=== PATIENT | female | born 1995 | race Caucasian/White ===

== ENCOUNTER 2021-08-28 08:42 | Emergency (ER) | payer OTHER, SELFPAY ==
[2021-08-28 08:56] VITALS: BP 129/78; PULSE 82; RESP 16; TEMP 37.2; O2SAT 100
--- NOTE | 2021-08-28 09:34 | ED.DENTAL ---
HPI - Dental/Oral General Chief complaint: Dental/Oral Stated complaint: Toothache Time Seen by Provider: 08/28/21 09:23 Source: patient and RN notes reviewed Mode of arrival: ambulatory Limitations: no limitations History of Present Illness HPI Narrative: Patient presents today complaining of left upper dental pain. States she broke her wisdom tooth 2 days ago while she was eating and has had pain ever since. She does not have a dentist. She currently rates her pain 4/10 and has been taking ibuprofen with mild relief. Smokes half pack per day. MD Complaint: tooth pain and tooth injury Related Data Home Medications Medication Instructions Recorded Confirmed etonogestrel [Nexplanon] 1 implant SUBDERMAL ONCE 10/09/19 08/28/21 Allergies Allergy/AdvReac Type Severity Reaction Status Date / Time amoxicillin Allergy Intermediate Rash Verified 08/28/21 09:08 Penicillins Allergy Intermediate Rash Verified 08/28/21 09:08 Review of Systems Review of Systems: CONSTITUTIONAL: Denies body aches, fever, chills, or sweats. EYES: Denies visual changes, redness, or discharge. ENT: Denies rhinorrhea, congestion, sore throat, or otalgia.+ Tooth pain and injury CARDIOVASCULAR: Denies chest pain, palpitations, or edema. RESPIRATORY: Denies cough or dyspnea. GASTROINTESTINAL: Denies abdominal pain, nausea, vomiting, or diarrhea. GENITOURINARY: Denies dysuria or hematuria. SKIN: Denies rash, itching, or wounds. MUSCULOSKELETAL: Denies back pain, joint pain, or myalgia. NEUROLOGIC: Denies headache, numbness, tingling, or weakness. PSYCH: Denies depression or anxiety. [facility] Social History Social History (Updated 08/28/21 @ 09:35 by Paula Klein, [facility], ) Smoking packs per day: 0.5 Smoking cigarettes per day: 10.0 Smoking status: Current every day smoker Tobacco type: cigarettes Exam Narrative: GENERAL: Well-appearing, well-nourished, and in no acute distress. HEAD: Normocephalic, atraumatic. EYES: EOMI. No redness or drainage. Conjunctivae normal. ENT: Mucous membranes pink and moist. Throat normal. Uvula midline. Lateral portion of tooth #16 is missing. Tender to palpation. No obvious periapical abscess noted. No swelling of the gumline. NECK: Normal AROM. Supple. No lymphadenopathy. CHEST: No respiratory distress. EXTREMITIES: Normal range of motion. No edema. SKIN: Warm, dry, no rash. Capillary refill normal. Normal skin turgor. NEURO: No focal deficits. Alert and oriented x3. Gait steady. PSYCH: Normal affect. No signs of depression or anxiety. Course Vital Signs Vital signs: Vital Signs Temperature 99.0 F 08/28/21 08:56 Pulse Rate 82 08/28/21 08:56 Respiratory Rate 16 08/28/21 08:56 Blood Pressure 129/78 08/28/21 08:56 Pulse Oximetry 100 08/28/21 08:56 Temperature 99.0 F 08/28/21 08:56 Pulse Rate 82 08/28/21 08:56 Respiratory Rate 16 08/28/21 08:56 Blood Pressure 129/78 08/28/21 08:56 Pulse Oximetry 100 08/28/21 08:56 Reviewed. Pt has been instructed to follow up with her PCP regarding her elevated blood pressure today. MDM - Dental/Oral Differential Diagnosis Differential diagnosis: Likely gingival abscess, dental caries, toothache, dental abscess and fracture of tooth Critical Care Time Critical Care Time Critical Care Time: No Discharge Plan Discharge Clinical Impression: Fracture of tooth Qualifiers: Encounter type: initial encounter Fracture type: closed Qualified Code(s): S02.5XXA - Fracture of tooth (traumatic), initial encounter for closed fracture Patient Disposition: Home, Self-Care Condition: Stable Instructions: Antibiotic Form Additional Instructions: Please take the clindamycin as prescribed until gone. Follow-up with your dentist as soon as possible. Continue ibuprofen for pain. Your blood pressure was elevated above 120/80 today at Urgent Care. This puts you above the threshold for follow up. Please schedule a follow
== END 2021-08-28 09:40 | disposition home or self-care (01) ==
PROVIDERS: Emergency Provider Nurse Practitioner
DX: S02.5XXA Fracture of tooth (traumatic), initial encounter for closed fracture (principal); F17.210 Nicotine dependence, cigarettes, uncomplicated; X58.XXXA Exposure to other specified factors, initial encounter
CPT/HCPCS: 99213; G0463